=== PATIENT | female | born 1990 | race Two or more races ===

== ENCOUNTER 2019-07-20 19:22 | Emergency (ER) | payer SELFPAY ==
[2019-07-20] MEDS ORDERED: Lidocaine 1% 10 ML MDV INJECT ONE (19:48)
[2019-07-20] MEDS ORDERED: Diphtheria,Pertussis(Acell),Tetanus Vaccine 0.5 ML Syringe IM ONE (19:48)
--- NOTE | 2019-07-20 20:18 | EDM.PDOC ---
ED HPI GENERAL MEDICAL PROBLEM - General Chief Complaint: Upper Extremity Injury/Pain Stated Complaint: LACERATION TO HAND Time Seen by Provider: 07/20/19 19:43 Source of Information: Reports: Patient, RN Notes Reviewed History Limitations: Reports: No Limitations - History of Present Illness INITIAL COMMENTS - FREE TEXT/NARRATIVE: Patient is a 29-year-old female who presents to the ED for the evaluation of a laceration to her right hand. The patient notes that prior to arrival to the ED , she was cleaning a new knife they had just bought, and she ended up cutting her right hand. This resulted in a 2 cm laceration to the lateral aspect of the base of the right hand at the wrist joint. This is linear, and clean in nature. Patient is unsure of her last tetanus booster. Patient has no issues with range of motion of the thumb, she still retains good strength in the thumb. She has no numbness or tingling distal to the injury site. Right Hand Pain Score (Numeric/FACES): 6 - Related Data Allergies Allergy/AdvReac Type Severity Reaction Status Date / Time No Known Allergies Allergy Verified 07/20/19 19:36 Home Meds: Home Meds . [No Known Home Meds] 07/20/19 [History] Past Medical History - Past Health History Medical/Surgical History: Denies Medical/Surgical History Social & Family History - Tobacco Use Smoking Status *Q: Never Smoker Review of Systems - Review of Systems Review Of Systems: Comprehensive ROS is negative, except as noted in HPI. Skin: Reports: Wound (2cm linear laceration to anterior lateral base of right wrist) Neurological: Denies: Numbness, Tingling ED EXAM, GENERAL - Physical Exam Exam: See Below Exam Limited By: No Limitations General Appearance: Alert, WD/WN, No Apparent Distress Respiratory/Chest: No Respiratory Distress, Lungs Clear, Normal Breath Sounds, No Accessory Muscle Use, Chest Non-Tender Cardiovascular: Normal Peripheral Pulses, Regular Rate, Rhythm, No Murmur Peripheral Pulses: 3+: Radial (L), Radial (R) Extremities: Normal Inspection (with exception of laceration), Normal Range of Motion, Normal Capillary Refill Neurological: Alert, Oriented, Normal Cognition, No Motor/Sensory Deficits Psychiatric: Normal Affect, Normal Mood Skin Exam: Warm, Dry, Normal Color, No Rash, Wound/Incision (2cm linear laceration to anterior lateral base of right wrist) ED TRAUMA EXTREMITY PROCEDURES - Laceration/Wound Repair Right Anterior Lateral Wrist Lac/Wound Length In cm: 2 Appearance: Superficial, Linear, Clean Distal NVT: Neuro & Vascular Intact, No Tendon Injury Anesthetic Type: Local Local Anesthesia - Lidocaine (Xylocaine): 1% Plain Local Anesthetic Volume: 4cc Skin Prep: Chlorhexidine (Hibiciens), Saline Exploration/Debridement/Repair: Wound Explored, In a Bloodless Field, Explored to Base, No Foreign Material Found Closed With: Sutures Suture Size: 4-0 # of Sutures: 5 Suture Type: Prolene, Interrupted, Simple Sterile Dressing Applied: Nurse Tetanus Status Addressed: Yes Complications: No Course - Vital Signs Last Recorded V/S: Last Vital Signs Temp 98.9 F 07/20/19 19:36 Pulse 95 07/20/19 19:36 Resp 15 07/20/19 19:36 BP 125/43 L 07/20/19 19:36 Pulse Ox 100 07/20/19 19:36 - Orders/Labs/Meds Orders: Active Orders 24 hr Category Date Time Status Vaccines to be Administered [RC] PER UNIT ROUTINE Care 07/20/19 19:48 Active Meds: Medications Discontinued Medications Generic Name Dose Route Start Last Admin Trade Name Freq PRN Reason Stop Dose Admin Diphtheria/Tetanus/Acell Pertussis 0.5 ml 07/20/19 19:48 07/20/19 19:54 Adacel IM 07/20/19 19:49 0.5 ml .ONCE ONE Administration Lidocaine HCl 10 ml 07/20/19 19:48 07/20/19 19:54 Xylocaine 1% INJECT 07/20/19 19:49 10 ml ONETIME ONE Administration Departure - Departure Time of Disposition: 20:19 Disposition: Home, Self-Care 01 Condition: Fair Clinical Impression: Laceration of right wrist Qualifiers: Encounter type: initial encounter Qualified Code(s): S61.511A - Laceration without foreign body of right wrist, initial encounter - Discharge Information *PRESCRIPTION DRUG MONITORING PROGRAM REVIEWED*: No *COPY OF PRESCRIPTION DRUG MONITORING REPORT IN PATIENT BETITO: No Instructions: Sutured Wound Care, [id number] Referrals: PCP,None [Primary Care Provider] - Forms: ED Department Discharge Additional Instructions: You have been evaluated in the ED for your laceration. Sutures will need to stay in for 10-14 days (07/30/19 - 08/03/19) You may return to the ED or clinic for removal. Please keep this area clean and dry, you may cleanse with regular soap and water. No vigorous scrubbing. Watch out for signs of infection like increased redness, swelling, pain at the laceration site, or if you should develop any fevers or chills. Please return to ED if your symptoms change or worsen. Sepsis Event Note - Evaluation Sepsis Screening Result: No Definite Risk - Focused Exam Vital Signs: Vital Signs Temp Pulse Resp BP Pulse Ox 07/20/19 19:36 98.9 F 95 15 125/43 L 100 Date Exam was Performed: 07/20/19 Time Exam was Performed: 20:39 - My Orders Last 24 Hours: My Active Orders 07/20/19 19:48 Vaccines to be Administered [RC] PER UNIT ROUTINE - Assessment/Plan Last 24 Hours: My Active Orders 07/20/19 19:48 Vaccines to be Administered [RC] PER UNIT ROUTINE
== END 2019-07-20 20:55 | disposition home or self-care (01) ==
LOC: JD.ED 19:22
DX: S61.511A Laceration without foreign body of right wrist, initial encounter (principal); Z23 Encounter for immunization; W26.0XXA Contact with knife, initial encounter; Y93.G1 Activity, food preparation and clean up
CPT/HCPCS: 12001; 90471; 90715; 99282; J2001

== ENCOUNTER 2020-04-20 16:32 | Emergency (ER) | payer OTHER ==
--- NOTE | 2020-04-20 16:54 | EDM.PDOC ---
ED HPI GENERAL MEDICAL PROBLEM - General Chief Complaint: Lower Extremity Injury/Pain Stated Complaint: FALL/ R FOOT INJURY Time Seen by Provider: 04/20/20 16:40 Source of Information: Reports: Patient History Limitations: Reports: No Limitations - History of Present Illness INITIAL COMMENTS - FREE TEXT/NARRATIVE: A few days ago the patient slipped and fell down about 9 steps. She did not hurt anything and today she was stepping out of the car and felt sever pain and had swelling to lateral ankle. Good sensation and pulses distally. She can move her toes. Onset: Sudden Duration: Minutes: Location: Reports: Lower Extremity, Right (ankle) Quality: Reports: Sharp Severity: Moderate Improves with: Reports: Immobilization Worsens with: Reports: Movement Context: Reports: Trauma (fall and stepping out of car today) Associated Symptoms: Reports: No Other Symptoms Treatments GRAIN TRIMMER: Reports: Other (see below) Other Treatments GRAIN TRIMMER: motrin and ice Right Ankle Pain Score (Numeric/FACES): 8 - Related Data Allergies Allergy/AdvReac Type Severity Reaction Status Date / Time No Known Allergies Allergy Verified 07/20/19 19:36 Home Meds: Home Meds . [No Known Home Meds] 07/20/19 [History] Past Medical History - Past Health History Medical/Surgical History: Denies Medical/Surgical History Social & Family History - Tobacco Use Smoking Status *Q: Never Smoker - Caffeine Use Caffeine Use: Reports: Coffee - Recreational Drug Use Recreational Drug Use: No Review of Systems - Review of Systems Review Of Systems: See Below Constitutional: Reports: No Symptoms Eyes: Reports: No Symptoms Ears: Reports: No Symptoms Nose: Reports: No Symptoms Mouth/Throat: Reports: No Symptoms Respiratory: Reports: No Symptoms Cardiovascular: Reports: No Symptoms GI/Abdominal: Reports: No Symptoms Genitourinary: Reports: No Symptoms Musculoskeletal: Reports: Other (right ankle pain and swelling) ED EXAM, GENERAL - Physical Exam Exam: See Below Exam Limited By: No Limitations General Appearance: Alert, No Apparent Distress Ears: Normal External Exam Nose: Normal Inspection Head: Atraumatic, Normocephalic Neck: Normal Inspection Respiratory/Chest: No Respiratory Distress Extremities: Other (pain upon palpation to the right lateral malleolus. Good sensation and pulses distally and she can move her toes. She has some edema to the lateral malleolus.) Course - Vital Signs Last Recorded V/S: Last Vital Signs Temp 97.2 F 04/20/20 16:45 Pulse 70 04/20/20 16:45 Resp 20 04/20/20 16:45 BP 95/54 L 04/20/20 16:45 Pulse Ox 100 04/20/20 16:45 - Orders/Labs/Meds Orders: Active Orders 24 hr Category Date Time Status Ankle Min 3V Rt [CR] Stat Exams 04/20/20 16:49 Taken - Re-Assessments/Exams Free Text/Narrative Re-Assessment/Exam: 04/20/20 17:08 I ordered an x-ray and it was negative. Departure - Departure Time of Disposition: 17:10 Disposition: Home, Self-Care 01 Condition: Good Clinical Impression: Right ankle sprain Qualifiers: Encounter type: initial encounter Involved ligament of ankle: unspecified ligament Qualified Code(s): S93.401A - Sprain of unspecified ligament of right ankle, initial encounter - Discharge Information *PRESCRIPTION DRUG MONITORING PROGRAM REVIEWED*: Not Applicable *COPY OF PRESCRIPTION DRUG MONITORING REPORT IN PATIENT BETITO: Not Applicable Referrals: PCP,None [Primary Care Provider] - Michael Johnson NP [Nurse Practitioner] - 1 Week Forms: ED Department Discharge Additional Instructions: Ice your ankle for 15 minutes 3 times per day. Elevate your ankle above your heart as much as you can for 2 days. Wear the splint as needed for pain. Take tylenol or motrin as needed for pain. Sepsis Event Note (ED) - Focused Exam Vital Signs: Vital Signs Temp Pulse Resp BP Pulse Ox 04/20/20 16:45 97.2 F 70 20 95/54 L 100 - My Orders Last 24 Hours: My Active Orders 04/20/20 16:49 Ankle Min 3V Rt [CR] Stat - Assessment/Plan Last 24 Hours: My Active Orders 04/20/20 16:49 Ankle Min 3V Rt [CR] Stat
--- NOTE | 2020-04-20 17:08 | CR ---
Right ankle: 4 views of the right ankle were obtained. Comparison: No previous ankle study. Ankle mortise is symmetric. No acute fracture, dislocation or other bony abnormality is appreciated. Impression: 1. No abnormality is appreciated on right ankle exam. Diagnostic code #1 This report was dictated in MDT
== END 2020-04-20 17:30 | disposition home or self-care (01) ==
LOC: JD.ED 16:32
DX: S93.401A Sprain of unspecified ligament of right ankle, initial encounter (principal); W10.9XXA Fall (on) (from) unspecified stairs and steps, initial encounter
CPT/HCPCS: 73610-26-RT; 73610-RT; 99283-25

== ENCOUNTER 2022-01-31 03:41 | Emergency (ER) | payer MEDICAID, OTHER, SELFPAY | END 2022-01-31 15:00 | LOC: JD.ED 03:41 | DX: R45.851 Suicidal ideations (principal); F17.210 Nicotine dependence, cigarettes, uncomplicated; Z28.310 Unvaccinated for COVID-19; Z20.822 Contact with and (suspected) exposure to COVID-19 | CPT/HCPCS: 36415; 80053; 80143; 80179; 80306; 80307; 81025; 84443; 85025; 93005; 93010; 99283; 99285-25; U0002 ==

== ENCOUNTER 2022-10-23 14:34 | Emergency (ER) | payer MEDICAID ==
[2022-10-23] MEDS ORDERED: Sodium Chloride 0.9% 1,000 ML IV ONE (15:01)
[2022-10-23] MEDS ORDERED: HYDROmorphone 0.5 MG/0.5 ML Syringe IVPUSH ONE (15:01)
[2022-10-23] MEDS ORDERED: Ondansetron 4 MG/2 ML SDV IVPUSH ONE (15:01)
[2022-10-23] MEDS ORDERED: Metoclopramide 10 MG/2 ML SDV IVPUSH ONE (16:20)
== END 2022-10-23 18:57 | disposition left against medical advice (07) ==
LOC: JD.ED 14:34
DX: R10.84 Generalized abdominal pain (principal); Z72.0 Tobacco use; Z86.16 Personal history of COVID-19
CPT/HCPCS: 36415; 74176; 80053; 81003; 83690; 84703; 85025; 86140; 96361; 96374; 96375; 99284; J1170; J2405; J2765; J7030; 99282